=== PATIENT | male | born 2000 | race American Indian/Alaskan Native ===

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

== ENCOUNTER 2021-09-10 13:50 | Emergency (ER) | payer MEDICAID ==
[2021-09-10] MEDS ORDERED: SODIUM CHLORIDE 0.9% 1000 ML 1,000 ML ONE (13:51)
[2021-09-10] MEDS ORDERED: TETANUS,DIPH,PERTUSS(ACELL) VACCINE 0.5 ML SYRINGE IM ONE (13:55)
[2021-09-10] MEDS ORDERED: fentaNYL 100 MCG/2 ML INJ IV ONE (13:59)
[2021-09-10] MEDS ORDERED: ONDANSETRON 4 MG/2 ML INJ IV ONE (13:59)
[2021-09-10] MEDS ORDERED: SODIUM CHLORIDE 0.9% 1000 ML 1,000 ML IV ONE (13:59)
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
[2021-09-10 15:25] LABS: Hematocrit 43.1 % (35.5-45.6); Hemoglobin 14.4 gm/dl (11.8-15.2); Mean Corpuscular HGB Conc 33 % (32-34); Mean Corpuscular Volume 92 fl (84-94); Red Cell Distribution Width 12.7 % (13.2-15.2)
[2021-09-10 15:26] LABS: INR 0.86 (0.87-1.13)
[2021-09-10 15:56] LABS: Platelet Count 276 K/mm3 (140-440)
[2021-09-10 16:06] VITALS: BP 152/70
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
[2021-09-10 16:18] LABS: BUN/Creatinine Ratio 13; Blood Urea Nitrogen 10 mg/dL (9-20); Calcium 9.5 mg/dL (8.4-10.2); Hemolysis Index 29
== END 2021-09-10 16:55 | disposition hospice, inpatient (51) ==
LOC: ED 13:50
DX: S81.831A Puncture wound without foreign body, right lower leg, initial encounter (principal); W34.09XA Accidental discharge from other specified firearms, initial encounter; Y93.89 Activity, other specified; Y92.89 Other specified places as the place of occurrence of the external cause; Y99.8 Other external cause status
CPT/HCPCS: 36415; 71045; 73552; 74018; 74176; 80048; 85025; 85610; 85730; 96365; 96375; 99285; J0690; J2405; J3010; J7030; 90715